=== PATIENT | female | born 1985 | race Caucasian/White ===

== ENCOUNTER 2016-12-30 23:13 | Emergency (ER) | payer OTHER ==
[2016-12-31 00:12] VITALS: BP 132/82
--- NOTE | 2016-12-31 02:10 | ED ---
Skin Complaint - HPI Summary HPI Summary: Patient has a history of furuncles on her bottom and began to develop one two weeks ago. Normally she applies hot compresses and they express and resolve on their own, but she feels this time it has not followed this course. She has noted that her bottom hurts, as well as her back since yesterday. Today she began to have a headache as well. She worries the furuncle has "grown inward to her spine" and is now causing the new symptoms. She denies known injury to her back. She has not had fevers, chills, N/V/D, N/T, extremity weakness or pain. - History of Current Complaint Chief Complaint: EDGeneral Time Seen by Provider: 12/30/16 23:35 Stated Complaint: BACK/NECK PAIN Hx Obtained From: Patient Hx Last Menstrual Period: 10/30/15 Onset/Duration: Started Weeks Ago, Atraumatic, Still Present Timing: Constant Onset Severity: Severe Current Severity: Mild Pain Intensity: 0 Skin Location: Other: - right buttock Character: Painful Aggravating Symptom(s): Touch Alleviating Symptom(s): Heat Associated Signs & Symptoms: Tenderness - Allergy/Home Medications Allergies/Adverse Reactions: Allergies Allergy/AdvReac Type Severity Reaction Status Date / Time Penicillins Allergy Difficulty Verified 12/09/12 13:15 Breathing PMH/Surg Hx/FS Hx/Imm Hx Endocrine/Hematology History: Denies: Hx Anticoagulant Therapy, Hx Diabetes, Hx Thyroid Disease Cardiovascular History: Denies: Hx Congestive Heart Failure, Hx Deep Vein Thrombosis, Hx Hypertension , Hx Myocardial Infarction, Hx Pacemaker/ICD Respiratory History: Denies: Hx Asthma, Hx Chronic Obstructive Pulmonary Disease (COPD), Hx Lung Cancer GI History: Denies: Hx Gall Bladder Disease, Hx Gastrointestinal Bleed, Hx Ulcer, Hx Urosepsis History: Denies: Hx Kidney Stones, Hx Renal Disease Neurological History: Denies: Hx Dementia, Hx Migraine, Hx Seizures, Hx Transient Ischemic Attacks (TIA) Psychiatric History: Reports: Hx of Violent Episodes Against Others - pushing/ shoving Denies: Hx Anxiety, Hx Eating Disorder, Hx Depression, Hx Schizophrenia, Hx Bipolar Disorder - Surgical History Surgery Procedure, Year, and Place: tubal 3 c sections Infectious Disease History: Denies: Hx Clostridium Difficile, Hx Hepatitis, Hx Human Immunodeficiency Virus (HIV), Hx of Known/Suspected MRSA, Hx Shingles, Hx Tuberculosis, Hx Known/ Suspected VRE, Hx Known/Suspected VRSA, History Other Infectious Disease, Traveled Outside the [place] in Last 30 Days - Family History Known Family History: Positive: None - No clotting problems run in her family. - Social History Occupation: Unemployed Lives: With Family Alcohol Use: None Substance Use Type: Reports: None, Marijuana Smoking Status (MU): Former Smoker Type: Cigarettes Review of Systems Negative: Fever, Chills Positive: Other - furuncle left buttock Positive: Headache. Negative: Paresthesia, Numbness All Other Systems Reviewed And Are Negative: Yes Physical Exam Triage Information Reviewed: Yes Vital Signs On Initial Exam: Initial Vitals Temp Pulse Resp BP Pulse Ox 97.8 F 98 18 121/79 100 12/30/16 23:20 12/30/16 23:20 12/30/16 23:20 12/30/16 23:20 12/30/16 23:20 Vital Signs Reviewed: Yes Appearance: Positive: Well-Appearing, Pain Distress, Obese Skin: Positive: Warm, Skin Color Reflects Adequate Perfusion, Dry, Tender - pea size area of firm tissue that is non-fluctuant, without erythema, or edema., Soft Head/Face: Positive: Normal Head/Face Inspection Eyes: Positive: EOMI, MICKI, Conjunctiva Clear ENT: Positive: Hearing grossly normal Respiratory/Lung Sounds: Positive: Breath Sounds Present Cardiovascular: Positive: RRR Musculoskeletal: Positive: Strength/ROM Intact. Negative: Pain @, Edema Left, Edema Right Neurological: Positive: Sensory/Motor Intact, Alert, Oriented to Person Place, Time, NV Bundle Intact Distally, Normal Gait Psychiatric: Positive: Affect/Mood Appropriate AVPU Assessment: Alert - Bonifay Coma Scale Coma Scale Total: 15 Diagnostics - Vital Signs Vital Signs Temp Pulse Resp BP Pulse Ox 12/30/16 23:48 98.1 F 78 16 132/82 98 12/30/16 23:20 97.8 F 98 18 121/79 100 - Laboratory Lab Statement: Any lab studies that have been ordered have been reviewed, and results considered in the medical decision making process. Course/Dx - Differential Diagnoses - Skin Complaint Differential Diagnoses: Abscess, Allergic Reaction, Cellulitis, Contact Dermatitis, Foreign Body, Local Allergic Reaction, MRSA, Urticaria - Diagnoses Provider Diagnoses: Furuncle, Back pain Discharge - Discharge Plan Condition: Stable Disposition: HOME Patient Education Materials: Furunculosis and Carbunculosis (ED), Acute Low Back Pain (ED) Referrals: Ana Nair MD [Primary Care Provider] - Additional Instructions: Please call your PCP Sunday for a follow-up important if symptoms do not improve. Return to the emergency department if symptoms worsen.
== END 2016-12-31 01:25 | disposition home or self-care (01) ==
LOC: ED 23:13
DX: R51 Headache (principal); L02.32 Furuncle of buttock; Z87.891 Personal history of nicotine dependence; M54.9 Dorsalgia, unspecified
CPT/HCPCS: 99281

== ENCOUNTER 2017-01-16 12:44 | Emergency (ER) | payer OTHER ==
[2017-01-16 13:05] VITALS: BP 141/74
[2017-01-16] MEDS ORDERED: Tetan/Diph/Pertus SYR(Tdap)* 0.5 ML SYR(BOOSTRIX) use SYR IM ONE (13:30)
--- NOTE | 2017-01-16 13:40 | UC ---
don Carlisle Timothy, scribed for Mildred Hinson MD on 01/16/17 at 1315 . Skin Complaint HPI - HPI Summary HPI Summary: Yang Chong is a 31 yo female presenting to [facility] with a small puncture to her right foot from a ramsey tack this morning requesting a tetanus shot. She states she scrubbed her foot and cleaned it with rubbing alcohol and "cut the skin and rust out from around it." Pt is on doxycyclne for chonic lyme disease, not otherwise immunocompromised. No analgesia taken. No discomfort. No other complaints. She is not sure when her last tetanus shot was. She is not in any current pain. She was Dx with lyme disease 4 years ago and is still being treated. Her MHx includes lyme disease, marijuana use, tobacco use, tubal ligation, x3. - History of Current Complaint Chief Complaint: UCWounds Time Seen by Provider: 01/16/17 13:26 Stated Complaint: PUNCTURE WOUND TO FOOT Hx Obtained From: Patient Hx Last Menstrual Period: 12/26/16 Onset/Duration: Sudden Onset, Still Present Timing: Constant Onset Severity: Moderate Current Severity: Moderate Pain Intensity: 0 Pain Scale Used: 0-10 Numeric Location: Discrete - sole of right foot - Allergy/Home Medications Allergies/Adverse Reactions: Allergies Allergy/AdvReac Type Severity Reaction Status Date / Time Penicillins Allergy Difficulty Verified 12/09/12 13:15 Breathing Review of Systems Constitutional: Negative Skin: Other - small puncture wound from ramsey tack sole of right foot Eyes: Negative ENT: Negative Respiratory: Negative Cardiovascular: Negative Gastrointestinal: Negative Genitourinary: Negative Motor: Negative Neurovascular: Negative Musculoskeletal: Negative Neurological: Negative Psychological: Negative All Other Systems Reviewed And Are Negative: Yes PMH/Surg Hx/FS Hx/Imm Hx Previously Healthy: Yes Other History Of: Negative For: HIV, Hepatitis B, Hepatitis C, Anticoagulant Therapy - Surgical History Surgical History: Yes Surgery Procedure, Year, and Place: tubal 3 c sections - Family History Known Family History: Positive: None Negative: Cardiac Disease, Hypertension, Diabetes, Blood Disorder - no clotting disorders - Social History Alcohol Use: None Substance Use Type: Marijuana Smoking Status (MU): Former Smoker Type: Cigarettes When Did the Patient Quit Smoking/Using Tobacco: 5 MO AGO Household Exposure Type: Cigarettes Physical Exam Triage Information Reviewed: Yes Appearance: Well-Appearing, No Pain Distress, Well-Nourished Vital Signs: Initial Vital Signs Temp 98.3 F 01/16/17 13:02 Pulse 114 01/16/17 13:02 Resp 16 01/16/17 13:02 BP 141/74 01/16/17 13:02 Pulse Ox 98 01/16/17 13:02 Vital Signs Reviewed: Yes Eye Exam: Normal ENT: Positive: Hearing grossly normal Respiratory: Positive: Normal breath sounds Cardiovascular: Positive: Other: - 2+ DP, PT CBT < sec Abdomen Description: Positive: Nontender, No Organomegaly, Soft Bowel Sounds: Positive: Present Musculoskeletal Exam: Normal Musculoskeletal: Positive: Strength Intact Neurological Exam: Normal Neurological: Positive: Alert Psychological Exam: Normal Skin: Positive: Other - small, non-suturable puncture wound heel left foot - no bleeding, no erythema, no fluctuance Course/Dx - Course Course Of Treatment: Yang Chong is a 31 yo female presenting to [facility] for a tetanus shot S/P stepping on a ramsey tack with her right foot. Pt was counseled that she would receive a tetanus booster, and that use of the arm she receives the shot in will decrease the soreness of the vaccine on the muscle. In the ED course she received TDAP vaccine. After clinical examination she will be discharged home with appropraite instructions. wound care discussed pt given information regarding wound infection and care - Diagnoses Provider Diagnoses: puncture wound. tetanus vaccination booster Discharge - Discharge Plan Condition: Stable Disposition: HOME Patient Education Materials: Diphtheria/Pertussis/Tetanus Vaccine (By injection ), Diphtheria/Tetanus Vaccine (By injection), Puncture Wound (ED) Referrals: Ana Nair MD [Primary Care Provider] - If Needed Additional Instructions: Keep your wound clean and dry - monitor for signs of infection - reddness, red streaking, odor, pain, discharge - call your doctor or return with any complaints You received a tetanus booster today - you arm will likely me achy tomorrow - this is normal Okay to take tylenol or ibuprofen as needed Contact your doctor or return with questions or concerns Please follow up with your primary care physician regarding your visit to urgent care today. Return to urgent care or the emergency department with any new or recurring symptoms. The documentation as recorded by the don nelson Timothy accurately reflects the service I personally performed and the decisions made by me, Mildred Hinson MD.
== END 2017-01-16 13:50 | disposition home or self-care (01) ==
LOC: UCEAST 12:44
DX: S91.331A Puncture wound without foreign body, right foot, initial encounter (principal); W45.0XXA Nail entering through skin, initial encounter; Z23 Encounter for immunization
CPT/HCPCS: 90471; 90715; 99211; G0463

== ENCOUNTER 2017-02-26 21:30 | Emergency (ER) | payer OTHER ==
[2017-02-27 01:00] LABS: Hematocrit 41 % (35-47); Hemoglobin 13.6 g/dl (12.0-16.0); Mean Corpuscular HGB Conc 33 g/dl (31-36); Mean Corpuscular Hemoglobin 30 pg (27-31); Mean Corpuscular Volume 90 fL (80-97); Mean Platelet Volume 10 um3 (7.4-10.4); Red Blood Count 4.55 10^6/ul (4.0-5.4); Red Cell Distribution Width 13 % (10.5-15); White Blood Count 7.8 10^3/ul (3.5-10.8)
[2017-02-27 01:16] LABS: ALT 23 U/L (7-52); AST 19 U/L (13-39); Albumin 4.4 g/dL (3.2-5.2); Alkaline Phosphatase 40 U/L (34-104); Anion Gap 6 mmol/L (2-11); BUN/Creatinine Ratio 4.7 (8-20); Blood Urea Nitrogen 4 mg/dL (6-24); CO2 Carbon Dioxide 25 mmol/L (22-32); Calcium 9.5 mg/dL (8.6-10.3); Chloride 104 mmol/L (101-111); EGFR African American 100.3 (>60); Globulin 2.3 g/dL (2-4); Glucose 96 mg/dL (70-100); Potassium 3.7 mmol/L (3.5-5.0); Sodium 135 mmol/L (133-145); Total Protein 6.7 g/dL (6.4-8.9)
[2017-02-27] MEDS ORDERED: Meclizine TAB* 12.5 MG PO ONE (01:33)
--- NOTE | 2017-02-27 01:34 | ED ---
Dizziness - HPI Summary HPI Summary: 31F presents with vertigo, headache, pain behind left eye for 3 days. She states that around the same time she found out she has blood clots in her leg these symptoms started. She also admits to seeing flash lights, photophobia, and prickly feeling under skin. She has history of headaches but denies any history of migraines or family history of migraines. She denies any fever or neck pain. She denies any weakness, ear pain, hearing loss, sinus pressure. She has not taken anything but she has tried to drink a lot. The vertigo is worst with lying down. - History Of Current Complaint Chief Complaint: EDGeneral Stated Complaint: TREMORS/VISUAL DISTURBANCES Time Seen by Provider: 02/27/17 00:19 - Allergies/Home Medications Allergies/Adverse Reactions: Allergies Allergy/AdvReac Type Severity Reaction Status Date / Time Penicillins Allergy Difficulty Verified 12/09/12 13:15 Breathing PMH/Surg Hx/FS Hx/Imm Hx Endocrine/Hematology History: Denies: Hx Anticoagulant Therapy, Hx Diabetes, Hx Thyroid Disease Cardiovascular History: Denies: Hx Congestive Heart Failure, Hx Deep Vein Thrombosis, Hx Hypertension , Hx Myocardial Infarction, Hx Pacemaker/ICD Respiratory History: Denies: Hx Asthma, Hx Chronic Obstructive Pulmonary Disease (COPD), Hx Lung Cancer GI History: Denies: Hx Gall Bladder Disease, Hx Gastrointestinal Bleed, Hx Ulcer, Hx Urosepsis History: Denies: Hx Kidney Stones, Hx Renal Disease Neurological History: Denies: Hx Dementia, Hx Migraine, Hx Seizures, Hx Transient Ischemic Attacks (TIA) Psychiatric History: Reports: Hx of Violent Episodes Against Others - pushing/ shoving Denies: Hx Anxiety, Hx Eating Disorder, Hx Depression, Hx Schizophrenia, Hx Bipolar Disorder - Surgical History Surgery Procedure, Year, and Place: tubal 3 c sections Infectious Disease History: No Infectious Disease History: Denies: Hx Clostridium Difficile, Hx Hepatitis, Hx Human Immunodeficiency Virus (HIV), Hx of Known/Suspected MRSA, Hx Shingles, Hx Tuberculosis, Hx Known/ Suspected VRE, Hx Known/Suspected VRSA, History Other Infectious Disease, Traveled Outside the [place] in Last 30 Days - Family History Known Family History: Positive: None Negative: Cardiac Disease, Hypertension, Diabetes, Blood Disorder - no clotting disorders - Social History Alcohol Use: None Substance Use Type: Reports: Marijuana Smoking Status (MU): Former Smoker Type: Cigarettes Review of Systems Negative: Fever Negative: Chest Pain Negative: Shortness Of Breath Neurological: Other - vertigo Positive: Headache All Other Systems Reviewed And Are Negative: Yes Physical Exam Triage Information Reviewed: Yes Vital Signs On Initial Exam: Initial Vitals Temp Pulse Resp BP Pulse Ox 98.7 F 102 20 128/86 100 02/26/17 21:34 02/26/17 21:34 02/26/17 21:34 02/26/17 21:34 02/26/17 21:34 Vital Signs Reviewed: Yes Appearance: Positive: Well-Appearing Skin: Positive: Warm, Dry Head/Face: Positive: Normal Head/Face Inspection Eyes: Positive: Normal, EOMI, MICKI, Conjunctiva Clear ENT: Positive: Normal ENT inspection, Pharynx normal, TMs normal Respiratory/Lung Sounds: Positive: Clear to Auscultation, Breath Sounds Present Cardiovascular: Positive: Normal, RRR Neurological: Positive: Sensory/Motor Intact, Alert, Oriented to Person Place, Time, CN Intact II-III, Heel to Toe, Finger to Nose Diagnostics - Vital Signs Vital Signs Temp Pulse Resp BP Pulse Ox 02/26/17 21:34 98.7 F 102 20 128/86 100 - Laboratory Lab Results: Lab Results 02/27/17 02/27/17 Range/Units 00:45 00:45 WBC 7.8 (3.5-10.8) 10^3/ul RBC 4.55 (4.0-5.4) 10^6/ul Hgb 13.6 (12.0-16.0) g/dl Hct 41 (35-47) % MCV 90 (80-97) fL MCH 30 (27-31) pg MCHC 33 (31-36) g/dl RDW 13 (10.5-15) % Plt Count 201 (150-450) 10^3/ul MPV 10 (7.4-10.4) um3 Neut % (Auto) 51.7 (38-83) % Lymph % (Auto) 36.9 (25-47) % Sheridan % (Auto) 7.8 (1-9) % Eos % (Auto) 2.8 (0-6) % Baso % (Auto) 0.8 (0-2) % Absolute Neuts (auto) 4.0 (1.5-7.7) 10^3/ul Absolute Lymphs (auto) 2.9 (1.0-4.8) 10^3/ul Absolute Monos (auto) 0.6 (0-0.8) 10^3/ul Absolute Eos (auto) 0.2 (0-0.6) 10^3/ul Absolute Basos (auto) 0.1 (0-0.2) 10^3/ul Absolute Nucleated RBC 0 10^3/ul Nucleated RBC % 0.1 Sodium 135 (133-145) mmol/L Potassium 3.7 (3.5-5.0) mmol/L Chloride 104 (101-111) mmol/L Carbon Dioxide 25 (22-32) mmol/L Anion Gap 6 (2-11) mmol/L BUN 4 L (6-24) mg/dL Creatinine 0.85 (0.51-0.95) mg/dL Est GFR ( Amer) 100.3 (>60) Est GFR (Non-Af Amer) 78.0 (>60) BUN/Creatinine Ratio 4.7 L (8-20) Glucose 96 (70-100) mg/dL Calcium 9.5 (8.6-10.3) mg/dL Total Bilirubin 0.50 (0.2-1.0) mg/dL AST 19 (13-39) U/L ALT 23 (7-52) U/L Alkaline Phosphatase 40 (34-104) U/L C-React Prot High Sens 0.25 mg/L Total Protein 6.7 (6.4-8.9) g/dL Albumin 4.4 (3.2-5.2) g/dL Globulin 2.3 (2-4) g/dL Albumin/Globulin Ratio 1.9 (1-3) TSH Pending Beta HCG, Quant < 0.60 mIU/mL Result Diagrams: 02/27/17 00:45 02/27/17 00:45 Lab Statement: Any lab studies that have been ordered have been reviewed, and results considered in the medical decision making process. - CT brain CT Interpretation: No Acute Changes CT Interpretation Completed By: Radiologist Dizzy Course/Dx - Course Course Of Treatment: 31F presents with vertigo, headache, pain behind left eye for 3 days. She states that around the same time she found out she has blood clots in her leg these symptoms started. She also admits to seeing flash lights , photophobia, and prickly feeling under skin. She has history of headache bu tno history of migraines. She denies any fever or neck pain. on exam normal neuro exam. nystagmus seen, discussed with dr hurd who suggested could be migraine variant. CT brain and labs normal. told to follow up with primary, patient understands and agrees with plan. - Diagnoses Differential Diagnosis/HQI/PQRI: Anxiety, Benign Paroxysmal Positional Vertigo, Other - migraine Provider Diagnoses: Vertigo Discharge - Discharge Plan Condition: Good Disposition: HOME Patient Education Materials: Vertigo (ED) Referrals: Ana Nair MD [Primary Care Provider] - Additional Instructions: Follow up with primary within 5 days Take ibuprofen every 6 hours as needed for headache Can take OTC meclizine (dramamine) for vertigo Return to ED if develop any new or worsening symptoms
[2017-02-27 02:25] LABS: TSH (Thyroid Stimulating Horm) 2.56 mcIU/mL (0.34-5.60)
[2017-02-27 03:03] VITALS: BP 97/75
--- NOTE | 2017-02-27 07:57 | RAD ---
INDICATION: Vertigo, pain behind the eye, visual disturbances. COMPARISON: There are no prior studies available for comparison. TECHNIQUE: Contiguous axial sections of the brain were obtained from the skull base to the vertex without contrast. FINDINGS: The ventricles, cisterns and sulci are within normal limits. No significant focal abnormality or mass effect is seen. There is no evidence for hemorrhage. No significant focal osseous abnormality is seen. The visualized portion of the paranasal sinuses and mastoid air cells appear clear. IMPRESSION: NO EVIDENCE FOR GROSS ACUTE INFARCT, MASS EFFECT OR HEMORRHAGE.
== END 2017-02-27 03:03 | disposition home or self-care (01) ==
LOC: ED 21:30
DX: R42 Dizziness and giddiness (principal); R51 Headache; H53.149 Visual discomfort, unspecified; Z32.02 Encounter for pregnancy test, result negative; Z88.0 Allergy status to penicillin; Z87.891 Personal history of nicotine dependence
CPT/HCPCS: 36415; 70450; 80053; 84443; 84702; 85025; 86141; 99283; A9270-GY

== ENCOUNTER 2018-01-11 18:42 | Emergency (ER) | payer OTHER ==
--- NOTE | 2018-01-11 20:45 | RAD ---
INDICATION: Cough and fever COMPARISON: Chest x-ray dated November 08, 2008 TECHNIQUE: PA and lateral views of the chest were obtained. FINDINGS: The heart and mediastinum are normal in size and contour. The lungs are grossly clear. There is no evidence of large pleural effusion. Visualized bones are normal for the patient's age. There is no radiographic evidence of free air beneath the diaphragm IMPRESSION: No radiographic evidence of acute cardiopulmonary disease.
[2018-01-11] MEDS ORDERED: Albuterol/Ipratropium NEB.SOL* Albuterol 2.5 MG/Ipratropium 0.5 MG 3 ML INH ONE (20:49)
[2018-01-11] MEDS ORDERED: predniSONE TAB* 20 MG PO ONE (20:49)
--- NOTE | 2018-01-11 21:15 | ED ---
Respiratory - HPI Summary HPI Summary: Complains of productive cough 2 days with either fever up to 103 starting this a.m. Denies sore throat, CP, SOB, N/V/D, abdomen pain, change in urinary BM. Medical history is none. Patient quit smoking one year ago. - History of Current Complaint Chief Complaint: EDGeneral Stated Complaint: FEVER/CHEST TIGHTNESS Time Seen by Provider: 01/11/18 19:31 Hx Obtained From: Patient Pain Intensity: 2 - Allergy/Home Medications Allergies/Adverse Reactions: Allergies Allergy/AdvReac Type Severity Reaction Status Date / Time Penicillins Allergy Difficulty Verified 01/11/18 18:53 Breathing Home Medications: Home Medications Escitalopram (NF) [Lexapro 10 mg (NF)] 10 mg PO DAILY 01/11/18 [History Confirmed 01/11/18] PMH/Surg Hx/FS Hx/Imm Hx Endocrine/Hematology History: Denies: Hx Anticoagulant Therapy, Hx Diabetes, Hx Thyroid Disease Cardiovascular History: Denies: Hx Congestive Heart Failure, Hx Deep Vein Thrombosis, Hx Hypertension , Hx Myocardial Infarction, Hx Pacemaker/ICD Respiratory History: Denies: Hx Asthma, Hx Chronic Obstructive Pulmonary Disease (COPD), Hx Lung Cancer GI History: Denies: Hx Gall Bladder Disease, Hx Gastrointestinal Bleed, Hx Ulcer, Hx Urosepsis History: Denies: Hx Kidney Stones, Hx Renal Disease Neurological History: Denies: Hx Dementia, Hx Migraine, Hx Seizures, Hx Transient Ischemic Attacks (TIA) Psychiatric History: Reports: Hx of Violent Episodes Against Others - pushing/ shoving Denies: Hx Anxiety, Hx Eating Disorder, Hx Depression, Hx Schizophrenia, Hx Bipolar Disorder - Surgical History Surgery Procedure, Year, and Place: tubal 3 c sections Infectious Disease History: No Infectious Disease History: Denies: Hx Clostridium Difficile, Hx Hepatitis, Hx Human Immunodeficiency Virus (HIV), Hx of Known/Suspected MRSA, Hx Shingles, Hx Tuberculosis, Hx Known/ Suspected VRE, Hx Known/Suspected VRSA, History Other Infectious Disease, Traveled Outside the [place] in Last 30 Days - Family History Known Family History: Positive: None Negative: Cardiac Disease, Hypertension, Diabetes, Blood Disorder - no clotting disorders - Social History Alcohol Use: None Substance Use Type: Reports: Marijuana Smoking Status (MU): Former Smoker Type: Cigarettes Review of Systems Positive: Fever Eyes: Negative ENT: Negative Cardiovascular: Negative Positive: Cough Gastrointestinal: Negative Genitourinary: Negative Musculoskeletal: Negative Skin: Negative Neurological: Negative Psychological: Normal All Other Systems Reviewed And Are Negative: Yes Physical Exam Triage Information Reviewed: Yes Vital Signs On Initial Exam: Initial Vitals Temp Pulse Resp BP Pulse Ox 99.5 F 101 22 110/81 97 01/11/18 18:48 01/11/18 18:48 01/11/18 18:48 01/11/18 18:48 01/11/18 18:48 Vital Signs Reviewed: Yes Appearance: Positive: Well-Appearing Skin: Positive: Warm Head/Face: Positive: Normal Head/Face Inspection Eyes: Positive: Normal ENT: Positive: Normal ENT inspection Neck: Positive: Supple Respiratory/Lung Sounds: Positive: Wheezes - Bilateral Cardiovascular: Positive: Normal Abdomen Description: Positive: Nontender Musculoskeletal: Positive: Normal Neurological: Positive: Normal Psychiatric: Positive: Normal AVPU Assessment: Alert - Jyothi Coma Scale Best Eye Response: 4 - Spontaneous Best Motor Response: 6 - Obeys Commands Best Verbal Response: 5 - Oriented Coma Scale Total: 15 Diagnostics - Vital Signs Vital Signs Temp Pulse Resp BP Pulse Ox 01/11/18 20:59 110 16 97 01/11/18 20:04 80 106/73 97 01/11/18 20:00 86 96 01/11/18 19:34 92 107/67 96 01/11/18 19:05 87 116/65 98 01/11/18 18:48 99.5 F 101 22 110/81 97 - Laboratory Result Diagrams: 01/11/18 21:13 01/11/18 21:13 Lab Statement: Any lab studies that have been ordered have been reviewed, and results considered in the medical decision making process. - Radiology cxr Xray Interpretation: No Acute Changes Radiology Interpretation Completed By: Radiologist Disposition - Course Course Of Treatment: Complains of productive cough 2 days with either fever up to 103 starting this a.m. Denies sore throat, CP, SOB, N/V/D, abdomen pain, change in urinary BM. Medical history is none. Patient quit smoking one year ago. Physical exam patient had bilateral wheezing. [place] better after DuoNeb. No history of respiratory disease. Chest x-ray negative. Rx for prednisone and Tessalon - Diagnoses Provider Diagnoses: Viral syndrome Discharge - Sign-Out/Discharge Documenting (check all that apply): Discharge/Admit/Transfer - Discharge Plan Condition: Stable Disposition: HOME Patient Education Materials: Viral Syndrome (ED) Referrals: Judith Auguste [Primary Care Provider] - Additional Instructions: Tylenol or ibuprofen for fever control. Follow-up with primary care. Return to the ED for any new or worsening symptoms - Billing Disposition and Condition Condition: STABLE Disposition: HOME
[2018-01-11 21:23] LABS: Hematocrit 41 % (35-47); Hemoglobin 14.3 g/dl (12.0-16.0); Mean Corpuscular HGB Conc 35 g/dl (31-36); Mean Corpuscular Hemoglobin 31 pg (27-31); Mean Corpuscular Volume 89 fL (80-97); Mean Platelet Volume 9.7 um3 (7.4-10.4); Platelet Count 155 10^3/ul (150-450); Red Cell Distribution Width 13 % (10.5-15); White Blood Count 5.1 10^3/ul (3.5-10.8)
[2018-01-11 21:24] LABS: ABS Basophils 0 10^3/ul (0-0.2); ABS Eosinophils 0 10^3/ul (0-0.6); ABS Lymphocytes 1.1 10^3/ul (1.0-4.8); ABS Monocytes 0.4 10^3/ul (0-0.8); ABS Neutrophils 3.6 10^3/ul (1.5-7.7)
[2018-01-11 21:39] LABS: EGFR Non-African American 79.7 (>60)
[2018-01-11 22:05] LABS: ABS Nucleated RBC 0 10^3/ul; Eosinophil % 0.1 % (0-6); Lymphocyte % 20.8 % (25-47); Nucleated Red Blood Cells % 0
[2018-01-11 22:57] VITALS: BP 110/72
== END 2018-01-11 23:01 | disposition home or self-care (01) ==
LOC: ED 18:42
DX: B34.9 Viral infection, unspecified (principal); Z87.891 Personal history of nicotine dependence; Z88.0 Allergy status to penicillin
CPT/HCPCS: 36415; 71046; 80053; 83605; 85025; 86140; 99283; A9270-GY; J7512